=== PATIENT | female | born 1995 | race African-American/Black ===

== ENCOUNTER 2022-10-31 14:04 | Emergency (ER) | payer OTHER ==
[~2022-10-31 14:04] MED LIST: Iopamidol-370 76% 500 ML 1 ML ONE
[2022-10-31] MEDS ORDERED: Fentanyl 100 MCG/2 ML VIAL ONE ×2 (14:13→16:59)
[2022-10-31] MEDS ORDERED: Ondansetron PF 4 MG/2 ML Vial ONE (14:13)
[2022-10-31 14:44] LABS: #Eosinphils 0.1 thou/uL (0.0-0.7); #Lymphocytes 1.9 thou/uL (1.20-3.40); #Monocytes 0.5 thou/uL (0.11-0.59); #Neutrophils 4.9 thou/uL (1.40-6.50); %Basophils 0.3 % (0.0-1.0); %Eosinophils 0.8 % (0.0-10.0); %Lymphocytes 25.7 % (21.0-51.0); %Monocytes 7.1 % (0.0-10.0); Mean Corpuscular HGB CONC 33.4 g/dL (32.0-36.0); Mean Corpuscular Hemoglobin 32.4 pg (27.0-31.0); Mean Platelet Volume 7.6 fL (7.4-10.4); Platelet Count 238 10x3/uL (130-400); RBC Distribution Width 12.5 % (11.5-14.5); White Blood Cell (WBC) Count 7.5 10x3/uL (4.8-10.8)
[2022-10-31 14:47] LABS: BHCG - Serum Negative (NEGATIVE); Pregs Control Background? CLEAR/WHITE (CLR/WHITE); Pregs Control Bar Appear? YES (CONTROL BAR)
[2022-10-31 14:55] LABS: Anion Gap 10 mmol/L (10-20); BUN (Urea Nitrogen) 11 mg/dL (7.0-18.7); Bilirubin, Total 0.7 mg/dL (0.2-1.2); Calc. Creatinine Clearance 0 mL/min (70-130); Calcium 9.4 mg/dL (7.8-10.44); Carbon Dioxide 26 mmol/L (22-29); Chloride 106 mmol/L (98-107); Estimated GFR 86; Glucose 91 mg/dL (70-105); Potassium 4.2 mmol/L (3.5-5.1); Protein, Total 7.3 g/dL (6.0-8.3); Sodium 138 mmol/L (136-145)
[2022-10-31 14:56] LABS: ALT (SGPT) 36 U/L (8-55); AST (SGOT) 50 U/L (5-34); Albumin 4.4 g/dL (3.5-5.0); Alkaline Phosphatase 82 U/L (40-110); Globulin 2.9 g/dL (2.4-3.5)
[2022-10-31 14:57] LABS: INR-International Normal Ratio 1.1; PTT 28.5 sec (22.9-36.1); Prothrombin Time 14.1 sec (12.0-14.7)
[2022-10-31] MEDS ORDERED: Ketorolac Tromethamine 30 MG/ML VIAL ONE (17:24)
== END 2022-10-31 18:05 | disposition home or self-care (01) ==
LOC: ERS 14:04
DX: S22.31XA Fracture of one rib, right side, initial encounter for closed fracture (principal); S33.2XXA Dislocation of sacroiliac and sacrococcygeal joint, initial encounter; S50.811A Abrasion of right forearm, initial encounter; E11.9 Type 2 diabetes mellitus without complications; V43.52XA Car driver injured in collision with other type car in traffic accident, initial encounter; Y92.410 Unspecified street and highway as the place of occurrence of the external cause
CPT/HCPCS: 36415; 70450; 71045; 71260; 72125; 72170; 74177; 80053; 83605; 84484; 84703; 85025; 85610; 85730; 86850; 86900; 86901; 93005; 96374; 96375; 96376; J1885; J2405; J3010; Q9967